=== PATIENT | female | born 1980 | race American Indian/Alaskan Native ===

== ENCOUNTER 2017-09-03 09:30 | Emergency (ER) | payer OTHER ==
[2017-09-03 09:39] VITALS: BP 122/74
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
== END 2017-09-03 10:16 | disposition home or self-care (01) ==
LOC: ED 09:30
DX: S49.92XA Unspecified injury of left shoulder and upper arm, initial encounter (principal); W19.XXXA Unspecified fall, initial encounter; Y93.89 Activity, other specified; Y99.8 Other external cause status; Y92.89 Other specified places as the place of occurrence of the external cause
CPT/HCPCS: 99282

== ENCOUNTER 2020-09-18 20:48 | Emergency (ER) | payer MEDICAID, OTHER ==
[2020-09-18 21:00] VITALS: BP 122/63
[2020-09-18] MEDS ORDERED: IBUPROFEN 800 MG TAB PO ONE (23:10)
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
== END 2020-09-19 01:05 | disposition home or self-care (01) ==
LOC: ED 20:48
DX: S39.012A Strain of muscle, fascia and tendon of lower back, initial encounter (principal); Z98.890 Other specified postprocedural states; Z79.899 Other long term (current) drug therapy; V49.49XA Driver injured in collision with other motor vehicles in traffic accident, initial encounter; Y93.89 Activity, other specified; Y92.410 Unspecified street and highway as the place of occurrence of the external cause; Y99.8 Other external cause status
CPT/HCPCS: 72100